=== PATIENT | male | born 1975 | race Caucasian/White ===

== ENCOUNTER → 2023-04-19 | Outpatient (CLI) | payer MEDICARE ==
--- NOTE | 2023-04-23 07:49 | MR ---
EXAMINATION TYPE: MR shoulder RT wo con DATE OF EXAM: 04/19/2023 COMPARISON: None. HISTORY: Right shoulder pain x 1 year with difficulty raising arm overhead, no trauma. TECHNIQUE: Multiplanar, multisequence imaging of the right shoulder is performed without contrast. FINDINGS: Rotator Cuff: Full-thickness retracted tear of the supraspinatus tendon seen best coronal image 14 wi th 1.4 cm gap. There is marked increased signal in the distal infraspinatus tendon at the same level with at least partial tearing of the anterior fibers. Wavy contour to the intact subscapularis tendon . Rotator cuff muscle bulk is preserved. Acromioclavicular Joint: No significant spurring or narrowing. Distal acromion morphology shows tiny spur coronal image 18. Glenohumeral Joint: Moderate to large size joint effusion. No significant spurring. Labrum: The labrum appears grossly intact given limitation of non-arthrogram study. Biceps Tendon: The long head of biceps is in normal location within bicipital groove. Bone marrow signal: No focal abnormal marrow signal is appreciated. Other: No additional significant abnormality is appreciated. IMPRESSION: 1. Full-thickness tear of the supraspinatus tendon. 2. Tendinosis and significant tearing of the distal infraspinatus tendon. 3. Moderate to large-sized suprapatellar joint effusion
== END | disposition home or self-care (01) ==
LOC: RADMRIMAIN 12:05
PROVIDERS: ATTEND Family Medicine
DX: M75.111 Incomplete rotator cuff tear or rupture of right shoulder, not specified as traumatic (principal); M75.51 Bursitis of right shoulder; M67.813 Other specified disorders of tendon, right shoulder; M25.411 Effusion, right shoulder

== ENCOUNTER 2023-06-10 05:46 | Day surgery (SDC) | payer MEDICARE ==
[2023-06-07 12:16] VITALS: BMI 27.5
--- NOTE | 2023-06-09 08:28 | P.HPOR ---
History of Present Illness H&P Date: 06/09/23 Chief Complaint: Right shoulder pain The patient is a 47-year-old retired male who presents with right shoulder pain after an injury about a month ago. He notes he was trimming a tree with a chainsaw the limb broke pulling on his arm. He's had a difficult time with overhead use and at night ever since. He tried medications along with a home stretching program without much relief. He notes he's had previous problems with the same shoulder for the past couple years. Review of Systems Negative except as in HPI Past Medical History Past Medical History: Hyperlipidemia, Hypertension, Osteoarthritis (OA) History of Any Multi-Drug Resistant Organisms: None Reported Past Surgical History: Back Surgery, Orthopedic Surgery Additional Past Surgical History / Comment(s): BACK SX X 6, LT KNEE X 2, Past Anesthesia/Blood Transfusion Reactions: No Reported Reaction Smoking Status: Never smoker - Past Family History Mother Family Medical History: No Reported History Medications and Allergies Home Medications Medication Instructions Recorded Confirmed Type Atorvastatin [Lipitor] 20 mg PO HS 06/07/23 06/07/23 History Celecoxib [CeleBREX] 200 mg PO DAILY 06/07/23 06/07/23 History Gabapentin 1,200 mg PO BID 06/07/23 06/07/23 History HYDROmorphone HCL 8 mg PO Q4-6H PRN 06/07/23 06/07/23 History Losartan [Cozaar] 25 mg PO HS 06/07/23 06/07/23 History oxyCODONE-APAP 10-325MG [Percocet 1 tab PO Q4HR PRN 06/07/23 06/07/23 History 10-325 mg] Allergies Allergy/AdvReac Type Severity Reaction Status Date / Time No Known Allergies Allergy Verified 06/07/23 11:55 Physical Examination - Shoulder right Tenderness with palpation: anterior, bicipital groove Pain: with abduction, with forward flexion ROM: forward flexion: 100 degrees (Actively, 145 passively) ROM: internal rotation: upper lumbar ROM: external rotation: 60 degrees Crepitus with motion: Yes Strength: abduction: 4/5 Strength: external rotation: 4/5 Tests: internal impingement tests: positive, external impingment tests: positive Results Patient is a well-developed well-nourished male approximately 6 foot 3, 220 pounds of and amorphus habitus. HEENT exam is nonfocal, neck is supple. He is tender about the right shoulder anterior subacromial space. Moderate subacromial crepitus is noted. Martinez, Neer sign, and speed test are positive. His distal neurovascular appears intact in the right upper extremity. - Diagnostic results Shoulder MRI: image reviewed (RI of the right shoulder shows evidence of a full- thickness retracted rotator cuff tear.) Assessment and Plan Assessment: Probable acute on chronic right rotator cuff tear Right proximal bicipital tendinosis Plan: I talked to the patient at length regarding his condition along with treatment options. At this point he is quite painful and has significant weakness after this acute injury despite attempted conservative measures. After thorough discussion he opts to proceed with surgery. We'll plan to proceed with arthroscopic evaluation with probable rotator cuff repair versus debridement along with possible biceps tenotomy versus tenodesis. Risks and benefits were discussed at length layman's terms. We will likely perform that as an outpatient procedure.
[2023-06-10] MEDS ORDERED: LACTATED RINGERS 1,000 ML IV SCH (06:11)
[2023-06-10] MEDS ORDERED: SCOPOLAMINE 1 MG/72 HR PATCH TRANSDERM ONE (06:11)
[2023-06-10] MEDS ORDERED: DEXAMETHASONE SOD PHOSPHATE 4 MG/ML 1 ML VIAL IV ONE (06:11)
[2023-06-10] MEDS ORDERED: ONDANSETRON 4 MG/2 ML VIAL IVP ONE (06:11)
[2023-06-10] MEDS ORDERED: MIDAZOLAM 2 MG/2 ML VIAL IVP ONE ×2 (06:49→06:58)
[2023-06-10] MEDS ORDERED: fentaNYL (PF) 50 MCG/1 ML VIAL IVP ONE ×2 (06:49→06:58)
[2023-06-10 06:50] VITALS: TEMP 97.4
[2023-06-10] MEDS ORDERED: HYDROmorphone 0.5 MG/0.5 ML SYRINGE IVP PRN (07:00)
[2023-06-10] MEDS ORDERED: MIDAZOLAM 2 MG/2 ML VIAL IV PRN (07:00)
[2023-06-10] MEDS ORDERED: ePHEDrine 50 MG/ML 1 ML VIAL ONE (07:32)
[2023-06-10] MEDS ORDERED: PROPOFOL 10 MG/ML 20 ML VIAL IV ONE (07:32)
[2023-06-10] MEDS ORDERED: fentaNYL (PF) 50 MCG/ML 2 ML AMP ONE (07:32)
[2023-06-10] MEDS ORDERED: MIDAZOLAM 2 MG/2 ML VIAL ONE (07:32)
[2023-06-10] MEDS ORDERED: SUCCINYLCHOLINE CHLORIDE 200 MG/10 ML VIAL IV ONE (07:32)
[2023-06-10] MEDS ORDERED: ROPIVACAINE 5 MG/ML 30 ML VIAL ONE (07:32)
[2023-06-10] MEDS ORDERED: LIDOCAINE 1% INJ 10MG/ML (20 ML MDV) ONE (07:32)
[2023-06-10] MEDS ORDERED: LACTATED RINGERS 1,000 ML IV ONE (09:19)
--- NOTE | 2023-06-10 09:41 | P.OP ---
Date of Procedure: 06/10/23 Preoperative Diagnosis: Right shoulder impingement/symptomatic rotator cuff tear Postoperative Diagnosis: 5 cm rotator cuff tear/acromioclavicular joint arthritis Procedure(s) Performed: Right shoulder arthroscopic subacromial decompression/distal clavicular resection/rotator cuff repair Implants: Arthrex 4.75 mm swivel lock anchor 3, 5.5 mm swivel lock 2 [facility], [facility] Surgeon: Ryan Calero Conservation Officer #1: Jaspal Carrizales Estimated Blood Loss (ml): 10 Pathology: none sent Condition: stable Disposition: PACU Indications for Procedure: The patient is a 47-year-old male who presents after a recent injury with signi ficant pain and weakness related to a right rotator cuff tear. A discussion of the risks and benefits of operative intervention was made with patient. He opted to proceed with surgery. Operative risks to include infection, neurovascular injury, development of blood clots, possible tendon rerupture, possible postoperative stiffness and need for subsequent procedures was discussed. Informed consent was obtained. Operative Findings: As below Description of Procedure: The patient was brought to the operating room, and after induction of general anesthesia was placed in a beachchair position. A preoperative interscalene block was placed for postoperative analgesia. I examined the right shoulder. There was no gross block to passive motion or gross glenohumeral instability. The right upper extremity was prepped and draped in normal fashion. The bony outlines the acromion, distal clavicle, and coracoid process were outlined with a skin marker. The glenohumeral joint was inflated with 50 mL of saline utilizing a spinal needle from posterior approach. A posterior portal was made through a 5 mm skin incision 1 cm medial and inferior to the posterior lateral border time. A blunt trocar was used to easily into the joint. Diagnostic arthroscopy was performed. An anterior portal was made just lateral to the coracoid process entering the joint above the subscapularis tendon. The subscapularis tendon appeared to be intact. Anterior labrum was intact. The inferior recess was inspected. The posterior labrum was intact. The biceps was then inspected and was felt to be intact along with its anchor. On inspection the rotator cuff, a full-thickness tear involving the supraspinatus and infraspinatus was noted with some retraction. The arthroscope was placed into the subacromial space. A lateral portal was made 2 centimeters inferior to the anterior lateral border of the acromion. The rotator cuff was then mobilized with a traction suture. This was then easily brought back to the greater tuberosity. The soft tissue on the undersurface of the acromion was debrided with a motorized shaver and electrocautery clearly defining the anterior medial and lateral borders as well as the distal clavicle. An anterior inferior acromioplasty was performed with a motorized anastacia starting anterolateral, then extending this posteriorly, then extending this medially. I converted to a flat acromion and this was verified in the posterior and lateral viewing portals. The distal clavicle appeared to impinge on the sub-subacromial space. The distal 4 mm of clavicle was resected with a motorized anastacia. The greater tuberosity was lightly decorticating with a shaver down to a bleeding bony surface. An accessory superior lateral portal was made just off the lateral edge of the acromion for anchor placement. 3 anchors were then placed just off the articular surface with the appropriate starting awl. 4.75 mm anchors p reloaded with #2 fiber tape were placed. Good purchase was obtained. These fiber tapes were then passed the rotator cuff with a scorpion suture passer. A lateral row was created crisscrossing these tapes. 5.5 mm swivel lock anchors x2 were placed laterally. Good purchase was obtained. Final arthroscopic view showed adequate compression at the footprint. The arthroscope was then removed. The portals were closed with simple 3-0 nylon sutures. A sterile dressing was applied in addition to an abductor brace. The patient was then awoken from general anesthesia and transferred to recovery room in good condition. Blood loss was estimated at 10 mL. No complications were incurred. Sponge and needle counts were correct in the case. Jaspal PEÑA assisted and the major components of the case to include arm positioning, anchor placement, and rotator cuff repair.
--- NOTE | 2023-06-10 09:55 | P.ANPRN ---
Procedure Note - Anesthesia - Nerve Block Performed Right Interscalene Single Time Out Performed: Yes ([id number]) Date of Procedure: 06/10/23 Procedure Start Time: 07:00 Procedure Stop Time: 07:04 Location of Patient: PreOp Indication: Acute Post-Operative Pain, Requested by Surgeon Specifically requested for management of pain by : Ryan Calero Sedation Type: Sedate with meaningful contact maintained Preparation: Sterile Prep Position: Supine Catheter: None Needle Types: Pajunk Needle Gauge: 21 Ultrasound used to visualize needle placement: Yes Ultrasound used to observe medication spread: Yes Injectate: 0.5% Ropivacaine (see comment for volume) (30cc) Blood Aspirated: No Pain Paresthesia on Injection Noted: No Resistance on Injection: Normal Image Stored and Saved: Yes Events: Uneventful and Well Tolerated
[2023-06-10 11:26] VITALS: BP 164/78; PULSE 51; RESP 18
== END 2023-06-10 11:29 | disposition home or self-care (01) ==
LOC: OR 05:46
PROVIDERS: ATTEND Orthopaedic Surgery
DX: M75.101 Unspecified rotator cuff tear or rupture of right shoulder, not specified as traumatic (principal); M75.41 Impingement syndrome of right shoulder; I10 Essential (primary) hypertension; E78.5 Hyperlipidemia, unspecified; Z79.1 Long term (current) use of non-steroidal anti-inflammatories (NSAID); Z79.899 Other long term (current) drug therapy
CPT/HCPCS: 64415; 29827; 29826; C1713 ×2; C1894; J2250; J0330; J1100; J0690; J2405; J2001; J3010 ×2; J2795; J2704

== ENCOUNTER → 2023-11-03 | Outpatient (CLI) | payer MEDICARE ==
--- NOTE | 2023-11-03 15:21 | MR ---
EXAMINATION TYPE: MR shoulder RT wo con DATE OF EXAM: 11/03/2023 COMPARISON: Prior right shoulder MRI April 19, 2023 HISTORY: Right shoulder pain for 6 months to 2 years with difficulty raising arm overhead, Hx Rt shou lder surgery 06-10-2023 TECHNIQUE: Multiplanar, multisequence imaging of the right shoulder is performed without contrast. FINDINGS: Rotator Cuff: New susceptibility artifact from rotator cuff repair surgery identified in the humeral head. Successful interval surgical repair with increased signal and thickening of the infraspinatus a nd to a much greater degree the supraspinatus tendon identified. Surrounding fluid remains present. S ubscapularis tendon remains intact. Rotator cuff muscle bulk remains fairly well preserved. Acromioclavicular Joint: Subchondral cystic change without significant spurring or narrowing. Glenohumeral Joint: Small joint effusion is less prominent versus prior. Narrowing is seen. No signif icant spurring is present. Labrum: Increased signal superior labrum coronal image 13 through 15 for reference is new from prior . Biceps Tendon: The long head of biceps is in normal location within bicipital groove. Bone marrow signal: No focal abnormal marrow signal is appreciated. Other: No additional significant abnormality is appreciated. IMPRESSION: 1. Successful interval surgical repair of rotator cuff tear. There is however persistent tendinosis o f the supraspinatus and infraspinatus tendons without recurrent retracted tears. 2. Marked improvement in glenohumeral joint effusion. 3. New superior labral tear is felt present.
== END | disposition home or self-care (01) ==
LOC: RADMRIMAIN 11:02
PROVIDERS: ATTEND Orthopaedic Surgery
DX: M67.813 Other specified disorders of tendon, right shoulder (principal); M75.101 Unspecified rotator cuff tear or rupture of right shoulder, not specified as traumatic; M25.411 Effusion, right shoulder; Z98.890 Other specified postprocedural states

== ENCOUNTER → 2024-06-08 | Day surgery (SDC) | payer MEDICARE ==
[2024-06-06 09:49] VITALS: BMI 28.7
[~2024-06-08] MED LIST: LACTATED RINGERS 1,000 ML IV SCH; LIDOCAINE 1% INJ 10MG/ML (20 ML MDV) ONE; PROPOFOL 10 MG/ML 20 ML VIAL IV ONE
[2024-06-08] MEDS: IV FLUID CONTINUATION 1,000 ML IV ONE (14:11)
[2024-06-08 14:23] VITALS: TEMP 97.8
--- NOTE | 2024-06-08 15:01 | P.PCN ---
Date of Procedure: 06/08/24 Procedure(s) Performed: BRIEF HISTORY: Patient is a 48-year-old pleasant male scheduled for an elective colonoscopy as a part of screening for colon cancer. PROCEDURE PERFORMED: Colonoscopy. PREOPERATIVE DIAGNOSIS: Screening for colon cancer. IV sedation per Anesthesia. PROCEDURE: After informed consent was obtained, the patient, was brought into the endoscopy unit. IV sedation was administered by Anesthesia under continuous monitoring. Digital rectal examination was normal. Initially the Olympus CF-160 flexible video colonoscope was then inserted in the rectum, gradually advanced into the cecum without any difficulty. Careful examination was performed as the scope was gradually being withdrawn. Ileocecal valve and the appendiceal orifice were visualized and appeared normal. Prep was excellent. Mucosa of the cecum, ascending colon, transverse colon, descending colon, sigmoid colon, and rectum appeared normal. Retroflexion was performed in the rectum and no lesions were seen. The patient tolerated the procedure well. IMPRESSION: Normal-appearing colon from rectum to cecum with no evidence of colorectal neoplasia. RECOMMENDATIONS: Findings of this examination were discussed with the patient as well as his family. He was advised to have repeat screening colonoscopy in 10 years.
[2024-06-08 15:07] VITALS: RESP 16
[2024-06-08 15:27] VITALS: BP 1325/76; PULSE 57
== END ==
LOC: ORWHC2ENDO 12:29
PROVIDERS: ATTEND Internal Medicine Gastroenterology
DX: Z12.11 Encounter for screening for malignant neoplasm of colon (principal); I10 Essential (primary) hypertension; E78.5 Hyperlipidemia, unspecified; Z79.899 Other long term (current) drug therapy; Z98.890 Other specified postprocedural states
CPT/HCPCS: J2003; J2704; G0121

== ENCOUNTER → 2024-10-23 | Outpatient (CLI) | payer MEDICARE ==
--- NOTE | 2024-10-23 09:28 | XR ---
EXAMINATION TYPE: XR shoulder complete LT DATE OF EXAM: 10/23/2024 9:24 AM INDICATION: Patient age:Male; 48 years old; Reason for study: [id number] LT SHLD PAIN; pain COMPARISON: None TECHNIQUE: The left shoulder was examined in AP, internally rotated and scapular Y projections. . FINDINGS: No evidence of acute osseous pathology, joint dislocation, or soft tissue swelling. No significant steffany int space narrowing or spurring noted. The remaining portions of the visualized chest are unremarkabl e. IMPRESSION: No acute osseous pathology. [facility], , 10/23/2024 9:26 AM
== END | disposition home or self-care (01) ==
LOC: RADXRYALE 09:07
PROVIDERS: ATTEND Family Medicine
DX: M25.512 Pain in left shoulder (principal)

== ENCOUNTER → 2024-11-13 | Outpatient (CLI) | payer MEDICARE ==
--- NOTE | 2024-11-14 07:15 | MR ---
EXAMINATION TYPE: MR shoulder LT wo con DATE OF EXAM: 11/13/2024 7:19 PM COMPARISON: Left shoulder x-ray October 23, 2024 CLINICAL INDICATION: Male, 48 years old with history of S46.002A,M25.512, Left shoulder pain x3-4 mon ths, IV Contrast: cc (None if empty) TECHNIQUE: Multiplanar, multisequence imaging of the left shoulder is performed without contrast. FINDINGS: Rotator Cuff: Some increased signal distal infraspinatus muscle extending towards the myotendinous ju nction. Intact infraspinatus tendon. Increased signal in the supraspinatus tendon with partial tearin g along the articular surface. Heterogeneous increased signal subscapularis tendon with surrounding f luid. Rotator cuff muscle bulk is preserved. Acromioclavicular Joint: Mild to moderate narrowing and capsular hypertrophy with mild spurring at th e acromioclavicular joint Glenohumeral Joint: Small size joint effusion. No significant spurring. Labrum: Increased signal superior labrum suggesting tearing coronal images 12 through 14. Biceps Tendon: The long head of biceps is in normal location within bicipital groove. Bone marrow signal: Subchondral cystic changes distal clavicle. Other: No additional significant abnormality is appreciated. IMPRESSION: 1. Mild tendinosis of the infraspinatus tendon. More prominent tendinosis of the subscapularis tendon . Moderate to severe tendinosis and partial tearing of the supraspinatus tendon. 2. Probable superior labral tear. 3. [id number] degenerative changes are present as detailed above. [facility], , 11/14/2024 7:13 AM
== END | disposition home or self-care (01) ==
LOC: RADMRIMAIN 18:42
PROVIDERS: ATTEND Family Medicine
DX: S46.002A Unspecified injury of muscle(s) and tendon(s) of the rotator cuff of left shoulder, initial encounter (principal); M67.814 Other specified disorders of tendon, left shoulder; M75.112 Incomplete rotator cuff tear or rupture of left shoulder, not specified as traumatic; M19.012 Primary osteoarthritis, left shoulder; X58.XXXA Exposure to other specified factors, initial encounter